=== PATIENT | male | born 1965 | race Caucasian/White ===

== ENCOUNTER 2017-09-29 18:52 | Emergency (ER) | payer MEDICAID ==
[2017-09-29 18:52] VITALS: BMI 24.2
[2017-09-29 19:04] VITALS: RESP 18
[2017-09-29 19:09] VITALS: TEMP 97.9
--- NOTE | 2017-09-29 20:13 | ED PDOC ---
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 Patient reports he did nothing unusual 10 days ago to cause symptoms to appear. Notes also experiencing body aches, mild headaches (always has them), and difficulty standing due to weakness. Mentions also experiencing shortness of breath which he claims to be baseline. Patient denies any chest pain, abdominal pain or any other complaints at this time. Also , patient mentions having chronic back pain, as well as neck pain, after being diagnosed with disc to lower spine region, which later caused patient difficulty in moving left leg. Blood sugar taken here in the emergency room measures to 98. PMD: Dr. Foster Past Medical History - Provider Review Nursing Documentation Reviewed: Yes - Past History Past History: No Previous - Infectious Disease Hx of Infectious Diseases: None - Tetanus Immunization Tetanus Immunization: Unknown - Cardiac Hx Hypertension: Yes - Pulmonary Hx Respiratory Disorders: No - Endocrine/Metabolic Hx Diabetes Mellitus Type 2: Yes - Integumentary Other/Comment: abcesses - Musculoskeletal/Rheumatological Hx Back Pain: Yes Hx Herniated Disk: Yes (C4&5) - Psychiatric Hx Depression: No Hx Emotional Abuse: No Hx Physical Abuse: No Hx Substance Use: No - Past Surgical History Past Surgical History: No Previous - Surgical History Other/Comment: Abcess removal - Anesthesia Hx Anesthesia: No - Suicidal Assessment Feels Threatened In Home Enviroment: No Family/Social History - Physician Review Nursing Documentation Reviewed: Yes Family/Social History: No Known Family HX Smoking Status: Never Smoked Hx Alcohol Use: No Hx Substance Use: No Hx Substance Use Treatment: No Allergies/Home Meds Allergies/Adverse Reactions: Allergies No Known Allergies Allergy (Verified 03/30/13 11:22) Home Medications: Home Meds Medication Instructions Recorded Confirmed Unobtainable 09/29/17 09/29/17 Review of Systems - Physician Review All systems were reviewed & negative as marked: Yes - Review of Systems Constitutional: Fatigue, Other (weakness) Respiratory: SOB Cardiovascular: absent: Chest Pain Gastrointestinal: absent: Abdominal Pain Musculoskeletal: Myalgias Neurological: Headache (mild), Dizziness Physical Exam - Physical Exam Narrative Physical Exam (Text): Gen: VS reviewed, alert, well developed, well nourished, nontoxic, mild distress. ENT: normal pharynx, dry mucous membranes Eye: EOMI, PERRL Neck: no JVD, supple, no adenopathy CV: regular rate, regular rhythm, no rubs, no murmur, no gallops, S1, S2, pulses equal and strong Pulm: no distress, clear to auscultation, no wheeze, no rhonchi, breath sounds equal, no rales Abd: soft, nontender, no guarding, no rebound, no rigidity, normal bowel sounds Ext: no edema Skin: good color, no rash, no cyanosis Psych: responds appropriately to questions, normal affect Neuro: oriented x 3, CN2-12 intact grossly, motor intact, sensation intact Vital Signs Reviewed: Yes Vital Signs Temp Pulse Resp BP Pulse Ox 09/29/17 19:03 97.9 F 74 18 149/89 96 Temperature: Afebrile Blood Pressure: Normal Pulse: Regular Respiratory Rate: Normal Appearance: Positive for: Well-Appearing, Non-Toxic, Comfortable Pain Distress: None Mental Status: Positive for: Alert and Oriented X 3 Finger Stick Blood Glucose: 98 Medical Decision Making ED Course and Treatment: 09/29/17 19:57 Impression: 51 year old male with dizziness, body aches, fatigue, and weakness. Physical exam shows dry mucous membranes; otherwise no other acute findings on physical examination. Plan: -- Head CT -- Chest X-ray -- Labs -- Venous Blood Gas -- Urinalysis -- Reassess and disposition Progress Notes: 09/29/17 23:17: Patient is awake and alert. Appears non- toxic and comfortable. Patient ambulates with steady gait with assistance. 09/29/17 23:34 On re-evaluation, patient feels better and is in no acute distress. I have discussed the results and plan with the patient, who expresses understanding. Patient in agreement with plan to be discharged home. Patient is stable for discharge. Patient was instructed to follow up with physician or return if symptoms worsen or new concerning symptoms arise. - Lab Interpretations Lab Results: 09/29/17 20:01 09/29/17 20:01 Lab Results 09/29/17 20:50: pCO2 41, pO2 72.0 L, HCO3 27.2, ABG pH 7.43, ABG Total CO2 28.5 H, ABG O2 Saturation 96.9, ABG O2 Content 17.6, ABG Base Excess 2.6, ABG Hemoglobin 13.3, ABG Carboxyhemoglobin 1.8 H, POC ABG HHb (Measured) 3.0, ABG Methemoglobin 1.1, ABG O2 Capacity 18.2, Hgb O2 Saturation 94.1 L, FiO2 21.0 09/29/17 20:01: Urine Opiates Screen Negative, Urine Methadone Screen Negative, Ur Barbiturates Screen Negative, Ur Phencyclidine Scrn Negative, Ur Amphetamines Screen Negative, U Benzodiazepines Scrn Negative, U Oth Cocaine Metabols Negative, U Cannabinoids Screen Negative 09/29/17 20:01: TSH 3rd Generation 0.60, Alcohol, Quantitative < 10 09/29/17 20:01: Sodium 140, Potassium 3.7, Chloride 99, Carbon Dioxide 29, Anion Gap 15, BUN 15, Creatinine 0.7 L, Est GFR ( Amer) > 60, Est GFR ( Non-Af Amer) > 60, Random Glucose 119 H, Calcium 9.3, Magnesium 2.1, Total Bilirubin 0.5, AST 29, ALT 30, Alkaline Phosphatase 75, Total Creatine Kinase 195, Troponin I < 0.01, Total Protein 7.5, Albumin 4.4, Globulin 3.1, Albumin/ Globulin Ratio 1.4 09/29/17 20:01: WBC 4.9, RBC 4.93, Hgb 14.0, Hct 41.4 L, MCV 84.0, MCH 28.4, MCHC 33.8, RDW 13.9, Plt Count 273, MPV 9.9, Gran % 57.5, Lymph % (Auto) 33.3, [place] % (Auto) 8.0 H, Eos % (Auto) 1.0 L, Baso % (Auto) 0.2, Gran # 2.79, Lymph # (Auto) 1.6, [place] # (Auto) 0.4, Eos # (Auto) 0.1, Baso # (Auto) 0.01 09/29/17 20:01: Urine Color Yellow, Urine Appearance Clear, Urine pH 7.0, Ur Specific Tibbie 1.020, Urine Protein Trace H, Urine Glucose (UA) >=1000, Urine Ketones Trace H, Urine Blood Negative, Urine Nitrate Negative, Urine Bilirubin Negative, Urine Urobilinogen 0.2, Ur Leukocyte Esterase Negative, Urine RBC 0 - 2, Urine WBC 0 - 2, Ur Epithelial Cells None, Urine Bacteria Few - RAD Interpretation Narrative RAD Interpretations (Text): 09/29/17 21:24 no focal infiltrate, no ptx, no cardiolmegaly CT Head Without Intravenous Contrast Dictated and Authenticated by: Stephanie Nielsen MD 09/29/2017 10:37 PM Eastern Time ([place] & [place]) IMPRESSION: No acute intracranial findings. Radiology Orders: 09/29/17 19:56 CHEST PORTABLE [RAD] Stat 09/29/17 19:57 HEAD W/O CONTRAST [CT] Stat Planer Tailer: ED Physician - Scribe Statement The provider has reviewed the documentation as recorded by the Pbibguicho Norris Provider Scribe Provider Scribe Attestation: All medical record entries made by the Scribe were at my direction and personally dictated by me. I have reviewed the chart and agree that the record accurately reflects my personal performance of the history, physical exam, medical decision making, and the department course for this patient. I have also personally directed, reviewed, and agree with the discharge instructions and disposition. Disposition/Present on Arrival - Present on Arrival Any Indicators Present on Arrival: No History of DVT/PE: No History of Uncontrolled Diabetes: No Urinary Catheter: No History of Decub. Ulcer: No History Surgical Site Infection Following: None - Disposition Have Diagnosis and Disposition been Completed?: Yes Diagnosis: Fatigue Disposition: HOME/ ROUTINE Disposition Time: 23:32 Patient Plan: Discharge Patient Problems: Current Active Problems Problem Status Onset Fatigue Acute Condition: IMPROVED Discharge Instructions (ExitCare): Fatigue Print Language: [place] Additional Instructions: SONU MARKHAM, thank you for letting us take care of you today. Your provider was Dr. Pete Chavarria and you were treated for fatigue. The emergency medical care you received today was directed at your acute symptoms. If you were prescribed any medication, please fill it and take as directed. It may take several days for your symptoms to resolve. Return to the Emergency Department if your symptoms worsen, do not improve, or if you have any other problems. Please contact your doctor or call one of the physicians/clinics you have been referred to that are listed on the Patient Visit Information form that is included in your discharge packet. Bring any paperwork you were given at discharge with you along with any medications you are taking to your follow up visit. Our treatment cannot replace ongoing medical care by a primary care provider outside of the emergency department. Thank you for allowing the [facility] team to be part of your care today. If you had an X-Ray or CT scan: A Radiologist will review the ED reading if any change in treatment is needed we will contact you. If you had a blood, urine, or wound culture: It will take several days for the results, if any change in treatment is needed we will contact you. If you had an STI test: It will take 48 hours for the results. Please call after 1 week if you have not heard back. Referrals: Pieter Cai MD [Primary Care Provider] - Follow up with primary Forms: [employer] ([place]amese)
[2017-09-29 20:23] LABS: BASO # 0.01 K/mm3 (0.0-2.0); BASO % 0.2 % (0.0-3.0); EOS # 0.1 (0.0-0.7); GRAN # 2.79 (1.4-6.5); GRAN % 57.5 % (50.0-68.0); LYMPH # 1.6 (1.2-3.4); LYMPH % 33.3 % (22.0-35.0); MEAN CORPUSCULAR HEMOGLOBIN 28.4 pg (25.0-35.0); MEAN CORPUSCULAR HGB CONC 33.8 g/dl (31.0-37.0); MEAN PLATELET VOLUME 9.9 fl (7.0-11.0); MONO # 0.4 (0.1-0.6); RBC 4.93 10^6/uL (3.5-6.1); RED CELL DISTRIBUTION WIDTH 13.9 % (11.5-14.5); URINE BILIRUBIN NEGATIVE (NEGATIVE); URINE BLOOD NEGATIVE (NEGATIVE); URINE GLUCOSE (UA) >=1000 mg/dL (NEGATIVE); URINE LEUKOCYTE ESTERASE NEGATIVE Leu/uL (NEGATIVE); URINE PROTEIN TRACE mg/dL (<30 mg/dL); URINE UROBILINOGEN 0.2 E.U./dL (<1 E.U./dL); WHITE BLOOD COUNT 4.9 10^3/ul (4.5-11.0)
[2017-09-29 20:24] LABS: URINE APPEARANCE CLEAR (CLEAR); URINE COLOR YELLOW (YELLOW)
[2017-09-29 20:26] LABS: URINE RBC 0 - 2 /hpf (0-2); URINE WBC 0 - 2 /hpf (0-6)
[2017-09-29 20:27] LABS: URINE BACTERIA FEW (NEG)
[2017-09-29 20:30] LABS: ALB/GLOB RATIO 1.4 (1.1-1.8); ALBUMIN 4.4 g/dL (3.0-4.8); ALT/SGPT 30 U/L (7-56); AST/SGOT 29 U/L (17-59); BLOOD UREA NITROGEN 15 mg/dL (7-21); CALCIUM 9.3 mg/dL (8.4-10.5); GFR AFRICAN-AMERICAN > 60; GFR NON-AFRICAN AMERICAN > 60
[2017-09-29 20:39] LABS: BARBITURATES, UR NEGATIVE (NEGATIVE)
[2017-09-29 20:47] LABS: TROPONIN I < 0.01 ng/mL
[2017-09-29 20:50] LABS: BENZODIAZEPINES, UR NEGATIVE (NEGATIVE); OPIATES, UR NEGATIVE (NEGATIVE); PHENCYCLIDINE, UR NEGATIVE (NEGATIVE)
[2017-09-29 20:53] LABS: ARTERIAL BLOOD GAS HCO3 27.2 mmol/L (21-28); ARTERIAL BLOOD GAS HEMOGLOBIN 13.3 g/dL (11.7-17.4); ARTERIAL BLOOD GAS O2 CAPACITY 18.2 mL/dl (16-24); ARTERIAL BLOOD GAS O2 CONTENT 17.6 ML/dl (15-23); ARTERIAL BLOOD GAS O2 SAT 96.9 % (95-98); ARTERIAL BLOOD GAS PCO2 41 mm/Hg (35-45); ARTERIAL BLOOD GAS PH 7.43 (7.35-7.45); ARTERIAL BLOOD GAS TCO2 28.5 mmol.L (22-28)
[2017-09-30 00:57] VITALS: BP 118/78; PULSE 80; O2SAT 98
--- NOTE | 2017-09-30 08:44 | CT ---
Date of service: 09/29/2017 PROCEDURE: CT HEAD WITHOUT CONTRAST. HISTORY: weakness, headache COMPARISON: None available. TECHNIQUE: Axial computed tomography images were obtained through the head/brain without intravenous contrast. Radiation dose: Total exam DLP = mGy-cm. This CT exam was performed using one or more of the following dose reduction techniques: Automated exposure control, adjustment of the mA and/or kV according to patient size, and/or use of iterative reconstruction technique. FINDINGS: HEMORRHAGE: No intracranial hemorrhage. BRAIN: No mass effect or edema. No atrophy or chronic microvascular ischemic changes. VENTRICLES: Unremarkable. No hydrocephalus. CALVARIUM: Unremarkable. PARANASAL SINUSES: Unremarkable as visualized. No significant inflammatory changes. MASTOID AIR CELLS: Unremarkable as visualized. No inflammatory changes. OTHER FINDINGS: None. IMPRESSION: Normal CT of the Head.
--- NOTE | 2017-09-30 08:52 | RAD ---
Date of service: 09/29/2017 HISTORY: chest pain COMPARISON: 04/23/2012 FINDINGS: LUNGS: No active pulmonary disease. PLEURA: No significant pleural effusion identified, no pneumothorax apparent. CARDIOVASCULAR: Normal. OSSEOUS STRUCTURES: No significant abnormalities. VISUALIZED UPPER ABDOMEN: Normal. OTHER FINDINGS: None. IMPRESSION: No active disease.
== END 2017-09-30 00:57 | disposition home or self-care (01) ==
LOC: ED 18:52
DX: R53.83 Other fatigue (principal); I10 Essential (primary) hypertension; E11.9 Type 2 diabetes mellitus without complications